=== PATIENT | female | born 1995 | race Hispanic/Latino ===

== ENCOUNTER 2021-01-16 14:32 | Emergency (ER) | payer BC, MEDICAID ==
[~2021-01-16] VITALS: Ht 160 cm; Wt 108.9 kg
[2021-01-16 14:50] VITALS: BP 144/72
[2021-01-16] MEDS ORDERED: CYCLOBENZAPRINE HCL 10 MG TABLET PO ONE (15:30)
[2021-01-16] MEDS ORDERED: KETOROLAC 30MG VIAL (30MG/ML) IV ONE (15:30)
[2021-01-16] MEDS ORDERED: PROMETHAZINE HCL 25 MG/ML 1ML AMPULE IM ONE (15:30)
[2021-01-16] MEDS ORDERED: 0.9%NACL 100ML 100 ML ONE (15:36)
[2021-01-16] MEDS ORDERED: 0.9%NACL 1000ML 1,000 ML IV ONE (15:40)
[2021-01-16] MEDS ORDERED: ALBUHFA IH (16:45)
[2021-01-16] MEDS ORDERED: FLUT1DIS IH (16:45)
[2021-01-16] MEDS ORDERED: ONDA4TAB4 PO (16:45)
[2021-01-16] MEDS ORDERED: IVER3TAB PO (16:45)
== END 2021-01-16 17:51 | disposition home or self-care (01) ==
LOC: EDH 14:32
DX: U07.1 COVID-19 (principal); R03.0 Elevated blood-pressure reading, without diagnosis of hypertension; R51.9 Headache, unspecified; E66.9 Obesity, unspecified; Z79.1 Long term (current) use of non-steroidal anti-inflammatories (NSAID); Z79.51 Long term (current) use of inhaled steroids; Z79.899 Other long term (current) drug therapy; Z68.41 Body mass index [BMI] 40.0-44.9, adult
CPT/HCPCS: 87635; 96361; 96372; 96374; 99284; C9803; J1885; J2550; J7030